=== PATIENT | female | born 1960 | race Caucasian/White ===

== ENCOUNTER 2016-11-23 19:58 | Emergency (ER) | payer MEDICAID ==
[~2016-11-23] VITALS: Ht 162.6 cm; Wt 72.6 kg
--- NOTE | 2016-11-23 20:05 | NUR ---
To bed 7 a 56 yo female bibself with c/o high bp. upon arrival to er, patient is aaox4, ambulatory with steady gait. bp is 163/107. hr is 95. per patient she stopped taking hydralazine cause it make her have "headaches." no sob. breathing even and unlabored. cardiac monitoring on. gowned. awaiting for er md olve.
--- NOTE | 2016-11-23 20:13 | NUR ---
Dr Fry at bedside.
[2016-11-23] MEDS ORDERED: LABETALOL 20 MG/4 ML VIAL ONE (20:27)
[2016-11-23] MEDS ORDERED: hydrALAZINE HCL IV 20 MG VIAL IV ONE (20:30)
--- NOTE | 2016-11-23 20:30 | NUR ---
started a saline lock on the lac g20, blood drawn and sent to lab.
[2016-11-23] MEDS: LABETALOL 20 MG/4 ML VIAL IV ONE (20:38)
--- NOTE | 2016-11-23 20:41 | NUR ---
xr at bedside.
[2016-11-23 20:44] LABS: BASOPHILS # (AUTO) 0.1 /CMM (0.0-0.2); BASOPHILS % (AUTO) 0.8 % (0.0-2.0); EOSINOPHILS # (AUTO) 0.2 /CMM (0.0-0.7); EOSINOPHILS % (AUTO) 1.7 % (0.0-6.0); HEMATOCRIT 41 % (33-45); HEMOGLOBIN 13.9 g/dL (11.5-14.8); LYMPHOCYTES # (AUTO) 3.2 /CMM (0.8-4.8); LYMPHOCYTES % (AUTO) 34.4 % (20.0-44.0); MEAN CORPUSCULAR HEMOGLOBIN 29 PG (26.0-33.0); MEAN CORPUSCULAR HGB CONC 34 g/dl (31.0-36.0); MEAN CORPUSCULAR VOLUME 87 fL (82-100); MONOCYTES # (AUTO) 0.5 /CMM (0.1-1.30); MONOCYTES % (AUTO) 5.1 % (2.0-12.0); NEUTROPHILS # (AUTO) 5.4 /CMM (1.8-8.9); PLATELET COUNT (AUTO) 372 /CMM (150-450); RDW COEFFICIENT OF VARIATION 12.8 (11.5-15.0); RED BLOOD CELL COUNT(AUTO) 4.75 MIL/uL (4.0-5.2); WHITE BLOOD COUNT (AUTO) 9.4 K/uL (4.3-11.0)
[2016-11-23 20:53] LABS: CALCIUM, SERUM 9.1 mg/dL (8.5-10.1); CARBON DIOXIDE 29 mmol/L (21-32); CHLORIDE 105 mmol/L (98-107); CREATININE 0.8 mg/dL (0.6-1.3); GFR 74 mL/min (>60); GLUCOSE 112 mg/dL (74-106); POTASSIUM 3.6 mmol/L (3.5-5.1); SODIUM SERUM 139 mmol/L (136-145); UREA NITROGEN, BLOOD 24 mg/dL (7-18)
[2016-11-23 20:58] LABS: INR 0.97 (0.87-1.13); PROTHROMBIN TIME 10.1 SECS (9.5-12.7)
[2016-11-23 21:02] LABS: TROPONIN I < 0.017 ng/mL (0.00-0.056)
--- NOTE | 2016-11-23 21:20 | NUR ---
IV removed. Catheter intact and site benign. Pressure and 4x4 applied to site. No bleeding noted. Patient discharged to home in stable condition. Written and verbal after care instructions given. Patient verbalizes understanding of instruction. Patient is ambulatory with steady gait, accompanied by family. no further complaints.
[2016-11-23 21:29] VITALS: BP 134/85
== END 2016-11-23 21:20 | disposition home or self-care (01) ==
LOC: ER 19:58
DX: I10 Essential (primary) hypertension (principal); F41.9 Anxiety disorder, unspecified; J45.909 Unspecified asthma, uncomplicated; R79.1 Abnormal coagulation profile; K21.9 Gastro-esophageal reflux disease without esophagitis; M79.7 Fibromyalgia; Z88.0 Allergy status to penicillin; Z88.1 Allergy status to other antibiotic agents
CPT/HCPCS: 36415; 71010-TC; 80048-TC; 84484-TC; 85025-TC; 85730-TC; A4606; J3490; Z7610

== ENCOUNTER 2016-12-05 02:54 | Emergency (ER) | payer MEDICAID ==
[~2016-12-05] VITALS: Ht 160 cm; Wt 70.3 kg
[2016-12-05] MEDS ORDERED: METOCLOPRAMIDE HCL 10 MG/2 ML VIAL ONE ×2 (03:31→03:32)
[2016-12-05] MEDS ORDERED: diphenhydrAMINE HCL 50 MG/ML VIAL ONE (03:31)
[2016-12-05] MEDS: diphenhydrAMINE HCL 50 MG/ML VIAL IV ONE (04:09)
[2016-12-05] MEDS: METOCLOPRAMIDE HCL 10 MG/2 ML VIAL IV ONE (04:10)
[2016-12-05 05:42] VITALS: BP 136/93
== END 2016-12-05 05:43 | disposition home or self-care (01) ==
LOC: ER 02:57
DX: G43.909 Migraine, unspecified, not intractable, without status migrainosus (principal); I10 Essential (primary) hypertension; F41.9 Anxiety disorder, unspecified; J45.909 Unspecified asthma, uncomplicated; K21.9 Gastro-esophageal reflux disease without esophagitis; M79.7 Fibromyalgia; Z88.0 Allergy status to penicillin; Z88.1 Allergy status to other antibiotic agents; Z91.040 Latex allergy status
CPT/HCPCS: A4606; J1200; J2765; Z7610

== ENCOUNTER 2017-01-09 20:48 | Emergency (ER) | payer MEDICAID ==
[~2017-01-09] VITALS: Ht 165.1 cm; Wt 65.8 kg
[2017-01-09 20:54] VITALS: BP 131/97
[2017-01-09] MEDS ORDERED: ONDANSETRON 4 MG TAB.RAPDIS ONE (21:06)
[2017-01-09 21:19] LABS: APPEARANCE,URINE Clear (CLEAR); BILIRUBIN,URINE Negative (NEGATIVE); BLOOD, URINE Large Ery/uL (NEGATIVE); COLOR,URINE Yellow (YELLOW); KETONES,URINE Trace (NEGATIVE); LEUKOCYTE ESTERASE ,URINE Negative (NEGATIVE); NITRITE, URINE Positive (NEGATIVE); PH,URINE 5.5 (5.0-8.0); PROTEIN,URINE >=300 mg/dl (NEGATIVE); UGLUCOSE Negative (NEGATIVE); UROBILINOGEN,URINE 0.2 EU/dL (0.2)
[2017-01-09 21:23] LABS: BACTERIA,URINE Many /HPF (None Seen); RBC,URINE TOO NUMEROUS TO COUN /HPF (0-2); SQUAMOUS EPITHELIAL CELL,UR Moderate /HPF (None Seen)
[2017-01-09] MEDS ORDERED: NITROFURANTOIN/NITROFURAN MAC 100 MG CAPSULE ONE (21:30)
[2017-01-09] MEDS ORDERED: NITROFURANTOIN/NITROFURAN MAC 100 MG CAPSULE PO ONE (21:30)
[2017-01-09] MEDS ORDERED: ONDANSETRON 4 MG TAB.RAPDIS SL ONE (21:30)
[2017-01-09] MEDS ORDERED: PHENAZOPYRIDINE HCL 200 MG TABLET ONE (21:32)
[2017-01-09] MEDS ORDERED: PHENAZOPYRIDINE HCL 200 MG TABLET PO ONE (22:00)
== END 2017-01-09 21:40 | disposition home or self-care (01) ==
LOC: ER 20:50
DX: N39.0 Urinary tract infection, site not specified (principal); F41.9 Anxiety disorder, unspecified; I10 Essential (primary) hypertension; J45.909 Unspecified asthma, uncomplicated; K21.9 Gastro-esophageal reflux disease without esophagitis; M79.7 Fibromyalgia; Q89.9 Congenital malformation, unspecified; Z88.0 Allergy status to penicillin; Z88.1 Allergy status to other antibiotic agents; Z91.040 Latex allergy status; Z98.890 Other specified postprocedural states
CPT/HCPCS: 81000-TC; 87086-TC; 87186-TC; A4606; Q0162; Z7610

== ENCOUNTER 2017-06-28 10:29 | Emergency (ER) | payer MEDICAID ==
[~2017-06-28] VITALS: Ht 157.5 cm; Wt 70.3 kg
--- NOTE | 2017-06-28 10:42 | NUR ---
PT TO ED DT C/O COUGH CONGESTION X2 DAYS , DIZZINESS ROOM SPINNING EAR PAIN X 3DAYS AND CHEST PAIN TODAY. PATIENT IS AAO4. AFEBRILE. APPEARS IN NO DISTRESS. VSS
[2017-06-28] MEDS ORDERED: MECLIZINE HCL 25 MG TABLET ONE (10:49)
[2017-06-28 10:59] VITALS: BP 132/80
--- NOTE | 2017-06-28 10:59 | NUR ---
Patient discharged to home in stable condition. Written and verbal after care instructions given. Patient verbalizes understanding of instruction.
[2017-06-28] MEDS ORDERED: MECLIZINE HCL 12.5 MG TABLET PO ONE (11:00)
== END 2017-06-28 11:01 | disposition home or self-care (01) ==
LOC: ER 10:30
DX: J06.9 Acute upper respiratory infection, unspecified (principal); R42 Dizziness and giddiness; R51 Headache; H92.03 Otalgia, bilateral; I10 Essential (primary) hypertension; J45.909 Unspecified asthma, uncomplicated; K21.9 Gastro-esophageal reflux disease without esophagitis; F41.9 Anxiety disorder, unspecified; M79.7 Fibromyalgia; Z88.0 Allergy status to penicillin; Z91.040 Latex allergy status
CPT/HCPCS: 99283; A4606; J8597; Z7610

== ENCOUNTER 2018-07-23 20:42 | Emergency (ER) | payer MEDICAID ==
[~2018-07-23] VITALS: Ht 157.5 cm; Wt 68.0 kg
--- NOTE | 2018-07-23 21:05 | NUR ---
PT C/O SEVERE MIDBACK PAIN X 3 DAYS S/P FALLING BACKWARDS ONTO BUTTOCKS 5 DAYS AGO. PT AOX4. RESP EVEN AND UNLABORED. NAD NOTED. PT IN BED 1 RESTING COMFORTABLY. WILL CONTINUE TO MONITOR.
[2018-07-23] MEDS ORDERED: HYDROMORPHONE 1 MG/1 ML DISP.SYRIN ONE (22:29)
[2018-07-23] MEDS ORDERED: HYDROMORPHONE 1 MG/1 ML DISP.SYRIN IM ONE (22:30)
--- NOTE | 2018-07-23 22:59 | NUR ---
PT TAKEN TO RADIOLOGY VIA SE
[2018-07-23 23:11] VITALS: BP 156/96
[2018-07-23] MEDS ORDERED: ONDANSETRON 4 MG TAB.RAPDIS ONE (23:16)
[2018-07-23] MEDS ORDERED: ONDANSETRON 4 MG TAB.RAPDIS SL ONE (23:30)
--- NOTE | 2018-07-24 00:16 | NUR ---
TRIED TO GET AN BACK BRACE FROM [employer], ONLY HAVE ABD BINDERS. AWARE.
--- NOTE | 2018-07-24 00:34 | NUR ---
Patient discharged to home in stable condition. Written and verbal after care instructions given. Patient verbalizes understanding of instruction. PT AMBULATORY WITH STEADY GAIT.
== END 2018-07-24 00:39 | disposition home or self-care (01) ==
LOC: ER 20:42
DX: M51.36 Other intervertebral disc degeneration, lumbar region (principal); R42 Dizziness and giddiness; I10 Essential (primary) hypertension; J45.909 Unspecified asthma, uncomplicated; K21.9 Gastro-esophageal reflux disease without esophagitis; F41.9 Anxiety disorder, unspecified; M79.7 Fibromyalgia; Z96.611 Presence of right artificial shoulder joint; Z96.612 Presence of left artificial shoulder joint; Z98.890 Other specified postprocedural states; Z88.0 Allergy status to penicillin; Z88.1 Allergy status to other antibiotic agents; Z91.040 Latex allergy status; Z60.2 Problems related to living alone; W18.39XA Other fall on same level, initial encounter; Y93.89 Activity, other specified; Y92.89 Other specified places as the place of occurrence of the external cause; Y99.8 Other external cause status
CPT/HCPCS: 72131; 96372; 99284; J1170; Q0162; Z7610 ×2

== ENCOUNTER 2018-09-14 12:48 | Emergency (ER) | payer MEDICAID ==
[~2018-09-14] VITALS: Ht 157.5 cm; Wt 68.0 kg
[2018-09-14 12:48] VITALS: BP 169/114
--- NOTE | 2018-09-14 13:06 | NUR ---
DARA HENRIQUEZ AT BEDSIDE FOR EVAL.
[2018-09-14 14:51] LABS: APPEARANCE,URINE Clear (CLEAR); BILIRUBIN,URINE Negative (NEGATIVE); BLOOD, URINE Trace-lysed Ery/uL (NEGATIVE); COLOR,URINE Yellow (YELLOW); KETONES,URINE Negative (NEGATIVE); LEUKOCYTE ESTERASE ,URINE Negative (NEGATIVE); NITRITE, URINE Negative (NEGATIVE); PH,URINE 5.5 (5.0-8.0); PROTEIN,URINE Negative (NEGATIVE); UGLUCOSE Negative (NEGATIVE); UROBILINOGEN,URINE 0.2 EU/dL (0.2)
[2018-09-14 14:59] LABS: BACTERIA,URINE None seen /HPF (None Seen); SQUAMOUS EPITHELIAL CELL,UR Few /HPF (None Seen); WBC,URINE 0-3 /HPF (0-3)
--- NOTE | 2018-09-14 15:19 | NUR ---
RICHELLE UDRAND AFTER SEEN BY DARA.
== END 2018-09-14 15:22 | disposition left against medical advice (07) ==
LOC: ER 12:54
DX: J32.8 Other chronic sinusitis (principal); I10 Essential (primary) hypertension; J45.909 Unspecified asthma, uncomplicated; K21.9 Gastro-esophageal reflux disease without esophagitis; F41.9 Anxiety disorder, unspecified; R42 Dizziness and giddiness; M79.7 Fibromyalgia; Z98.890 Other specified postprocedural states; Z91.040 Latex allergy status; Z88.0 Allergy status to penicillin; Z88.1 Allergy status to other antibiotic agents; Z60.2 Problems related to living alone
CPT/HCPCS: 71045-TC; 81000-TC

== ENCOUNTER 2019-01-17 17:26 | Emergency (ER) | payer MEDICAID ==
[~2019-01-17] VITALS: Ht 157.5 cm; Wt 68.0 kg
[2019-01-17 17:48] VITALS: BP 157/100
== END 2019-01-17 20:39 | disposition home or self-care (01) ==
LOC: ER 17:28
DX: S90.32XA Contusion of left foot, initial encounter (principal); I10 Essential (primary) hypertension; J45.909 Unspecified asthma, uncomplicated; K21.9 Gastro-esophageal reflux disease without esophagitis; F41.9 Anxiety disorder, unspecified; M79.7 Fibromyalgia; Z98.890 Other specified postprocedural states; Z88.0 Allergy status to penicillin; Z88.1 Allergy status to other antibiotic agents; Z91.040 Latex allergy status; Z60.2 Problems related to living alone; W20.8XXA Other cause of strike by thrown, projected or falling object, initial encounter; Y93.89 Activity, other specified; Y92.89 Other specified places as the place of occurrence of the external cause; Y99.8 Other external cause status
CPT/HCPCS: 73630-TC